=== PATIENT | male | born 1970 | race Caucasian/White ===

== ENCOUNTER 2023-12-17 16:19 | Emergency (ER) | payer OTHER ==
[2023-12-17 16:35] VITALS: BP 134/91; PULSE 75; RESP 18; TEMP 98.1; BMI 32.8
== END 2023-12-17 17:18 | disposition home or self-care (01) ==
LOC: FER 16:19
DX: K64.4 Residual hemorrhoidal skin tags (principal); K62.89 Other specified diseases of anus and rectum
CPT/HCPCS: 99283-25

== ENCOUNTER 2023-12-23 13:08 | Emergency (ER) | payer OTHER ==
[2023-12-23 13:15] VITALS: BP 149/90; PULSE 92; RESP 20; TEMP 98.2; BMI 32.8
== END 2023-12-23 13:57 | disposition home or self-care (01) ==
LOC: FER 13:08
DX: K08.89 Other specified disorders of teeth and supporting structures (principal)
CPT/HCPCS: 99283-25